=== PATIENT | female | born 1990 | race Caucasian/White ===

== ENCOUNTER 2018-05-17 18:10 | Emergency (ER) | payer OTHER ==
[~2018-05-17] VITALS: Ht 162.6 cm; Wt 74.8 kg
[2018-05-17 18:15] VITALS: BP 103/74
== END 2018-05-17 18:43 ==
LOC: ER 18:15
DX: S10.81XA Abrasion of other specified part of neck, initial encounter (principal); Z60.2 Problems related to living alone; Y08.89XA Assault by other specified means, initial encounter; Y93.89 Activity, other specified; Y92.89 Other specified places as the place of occurrence of the external cause; Y99.8 Other external cause status